=== PATIENT | female | born 1965 | race Caucasian/White ===

== ENCOUNTER 2018-09-29 15:22 | Outpatient (CLI) | payer OTHER ==
[2018-09-29 16:19] LABS: BASOPHILS % (AUTO) 0.7 % (0-1); EOSINOPHILS # (AUTO) 0.2 X10'3 (0-0.9); HEMATOCRIT 36.4 % (35.0-45.0); HEMOGLOBIN 12.2 g/dl (12.0-16.0); LYMPHOCYTES # (AUTO) 1.8 X10'3 (1.1-4.8); MEAN CORPUSCULAR HEMOGLOBIN 33.7 PG (27.0-31.0); MEAN CORPUSCULAR HGB CONC 33.6 g/dL (33.0-36.5); MEAN CORPUSCULAR VOLUME 100.3 FL (78-98); MEAN PLATELET VOLUME 7.6 FL (7.4-10.4); MONOCYTES # (AUTO) 0.6 X10'3 (0-0.9); MONOCYTES % (AUTO) 8.8 % (2-12); NEUTROPHILS # (AUTO) 4.1 X10'3 (1.8-7.7); NEUTROPHILS % (AUTO) 60.5 % (42-75); PLATELET COUNT 281 X10'3 (140-440); RED BLOOD COUNT 3.63 X10'6 (4.20-5.60); RED CELL DISTRIBUTION WIDTH 12.4 % (11.5-14.5); WHITE BLOOD COUNT 6.7 X10'3 (4.5-11.0)
[2018-09-29 16:20] LABS: HCG SERUM QL NEGATIVE
[2018-10-01 11:16] LABS: FSH, SERUM 20.4 mIU/mL (.); LUTEINIZING HORMONE 31.7 mIU/mL (.)
== END 2018-09-29 23:59 | disposition home or self-care (01) ==
LOC: LAB 15:22
PROVIDERS: ATTEND Obstetrics & Gynecology
DX: N92.0 Excessive and frequent menstruation with regular cycle (principal); R00.0 Tachycardia, unspecified
CPT/HCPCS: 36415; 83001; 83002; 84443; 84703; 85025

== ENCOUNTER 2019-01-10 11:36 | Outpatient (CLI) | payer OTHER ==
[2019-01-10] VITALS (9 sets, daily range): BP systolic 169–208; BP diastolic 83–103
[~2019-01-10] VITALS: Ht 165.1 cm; Wt 65.9 kg
[2019-01-10] MEDS ORDERED: aminophylline 250mg/10ml inj. IV PRN (13:05)
[2019-01-10] MEDS ORDERED: regadenoson 0.4mg/5ml syringe IV ONE ×2 (13:05→13:32)
[2019-01-10] MEDS ORDERED: normal saline 500ml IV soln 500 ML IV ONE (13:05)
[2019-01-10] MEDS ORDERED: nitroGLYCERIN 0.4mg SUBLingual tab SL PRN (13:05)
[2019-01-10] MEDS ORDERED: aminophylline inj. 10 ML IV ONE (13:32)
== END 2019-01-10 23:59 | disposition home or self-care (01) ==
LOC: RAD 11:36
PROVIDERS: ATTEND Nurse Practitioner Family
DX: Z01.818 Encounter for other preprocedural examination (principal); R94.31 Abnormal electrocardiogram [ECG] [EKG]
CPT/HCPCS: 78452; 93017; A9500; J0280; J7030